=== PATIENT | female | born 1980 | race Caucasian/White ===

== ENCOUNTER 2020-07-07 13:52 | Emergency (ER) | payer OTHER ==
[2020-07-07] MEDS ORDERED: IBUPROFEN 600 MG TABLET (FP) PO ONE ×2 (14:14→14:44)
[2020-07-07 14:20] VITALS: BP 127/90; PULSE 78; TEMP 99; BMI 26.4
== END 2020-07-07 15:19 | disposition home or self-care (01) ==
LOC: FER 13:52
DX: S40.911A Unspecified superficial injury of right shoulder, initial encounter (principal)
CPT/HCPCS: 71045-TC-FY; 73030-TC-RT-FY; 99284-25